=== PATIENT | male | born 1955 | race African-American/Black ===

== ENCOUNTER 2021-04-08 10:17 | Inpatient (IN) | payer MEDICARE ==
[~2021-04-08] VITALS: Ht 170.2 cm; Wt 75.7 kg
[2021-04-08] MEDS ORDERED: IBUPROFEN 600 MG TAB PO STA (10:26)
[2021-04-08 10:44] LABS: EOSINOPHILS % 1.3 % (0.0-6.0); HEMATOCRIT 22.6 % (38.2-49.6); HEMOGLOBIN 7.2 g/dL (14.0-18.0); LYMPHOCYTES # (AUTO) 0.8 (1.0-3.2); LYMPHOCYTES % 35.2 % (18.0-39.1); MEAN CORPUSCULAR HEMOGLOBIN 28.7 pg (28-32); MEAN CORPUSCULAR HGB CONC 31.9 g/dL (31-35); MONOCYTES # (AUTO) 0.2 (0.2-0.8); MONOCYTES % 7.2 % (4.4-11.3); NEUTROPHILS # (AUTO) 1.3 (2.1-6.9); NEUTROPHILS % 53.8 % (38.7-80.0); RED BLOOD COUNT 2.51 x10e6/uL (4.3-5.7); RED CELL DISTRIBUTION WIDTH 19.8 % (11.7-14.4)
[2021-04-08 10:54] LABS: INR 0.95; PLATELET COUNT 46 x10e3/uL (140-360); PROTHROMBIN TIME 12.9 seconds (11.9-14.5)
[2021-04-08 10:59] LABS: ALBUMIN 2.4 g/dL (3.5-5.0); ALBUMIN/GLOBULIN RATIO 0.5 (0.8-2.0); CALCIUM 8.5 mg/dL (8.4-10.2); CREATININE, SERUM 1.75 mg/dL (0.72-1.25)
[2021-04-08 11:40] LABS: LYMPHOCYTES % (MANUAL) 27 % (19-48); MONOCYTES % (MANUAL) 4 % (3.4-9.0); NEUTROPHILS % (MANUAL) 64 % (40-74)
[2021-04-08 11:41] LABS: ANISOCYTOSIS MODERATE; HYPOCHROMASIA SLIGHT; PLATELET ESTIMATE MARKEDLY DECREASED; PLATELET MORPHOLOGY COMMENT NORMAL; POLYCHROMASIA FEW; RBC MORPHOLOGY COMMENT ABNORMAL
[2021-04-08] MEDS: CEFEPIME 1 GM in SODIUM CHLORIDE 0.9% 50ML 50 ML IV SCH ×2 (12:30→13:00)
[2021-04-08] MEDS ORDERED: POTASSIUM CHLORIDE 20 MEQ TAB CR PO ONE (12:30)
[2021-04-08] MEDS ORDERED: ACETAMINOPHEN 325 MG TAB PO PRN (13:00)
[2021-04-08] MEDS ORDERED: ONDANSETRON HCL INJ 2MG/ML 2ML 2 MG/ML VIAL IV PRN (13:00)
[2021-04-08] MEDS ORDERED: DEXAMETHASONE SOD PHOS 10 MG/1 ML VIAL IV ONE (13:30)
[2021-04-08] MEDS ORDERED: DEXAMETHASONE SOD PHOS 10 MG/1 ML VIAL ONE (13:32)
[2021-04-08 14:21] LABS: THYROID STIMULATING HORMONE 0.204 uIU/mL (0.350-4.940)
[2021-04-08] MEDS ORDERED: FLOMAX0.4 MG PO (17:31)
[2021-04-08] MEDS ORDERED: VALACYCLOVIR500 MG PO (17:36)
[2021-04-08] MEDS ORDERED: CARVEDILOL12.5 MG PO (17:36)
[2021-04-08] MEDS ORDERED: ASPIRIN81 MG PO (17:36)
[2021-04-08] MEDS ORDERED: LEVOTHYROXINE75 MCG PO (17:36)
[2021-04-08] MEDS ORDERED: OS-CAL 500+D T1 EACH PO (17:36)
[2021-04-08] MEDS ORDERED: MICARDIS80 MG PO (17:36)
[2021-04-08] MEDS ORDERED: OMEPRAZOLE40 MG PO (17:36)
[2021-04-08] MEDS ORDERED: AMLODIPINE BESY10 MG PO (17:37)
[2021-04-08] MEDS ORDERED: CRESTOR10 MG PO (17:38)
[2021-04-08 19:30] VITALS: BP 118/87
[2021-04-08] MEDS: TAMSULOSIN HCL 0.4 MG CAP PO SCH (21:02)
[2021-04-08 21:17] VITALS: BP 118/87
[2021-04-08 21:21] VITALS: BP 118/87
[2021-04-08 23:00] VITALS: BP 118/87
[2021-04-08 23:50] VITALS: BP 148/73
[2021-04-09] VITALS (7 sets, daily range): BP systolic 127–151; BP diastolic 64–84
[2021-04-09] MEDS: CEFEPIME 1 GM in SODIUM CHLORIDE 0.9% 50ML 50 ML IV SCH ×3 (05:27→21:00)
[2021-04-09 07:30] LABS: BASOPHILS % 0.4 % (0.0-1.0); HEMATOCRIT 38.2 % (38.2-49.6); HEMOGLOBIN 12.4 g/dL (14.0-18.0); LYMPHOCYTES # (AUTO) 0.8 (1.0-3.2); LYMPHOCYTES % 28.6 % (18.0-39.1); MEAN CORPUSCULAR HGB CONC 32.5 g/dL (31-35); MEAN CORPUSCULAR VOLUME 89.3 fL (81-99); MONOCYTES # (AUTO) 0.2 (0.2-0.8); NEUTROPHILS # (AUTO) 1.7 (2.1-6.9); NEUTROPHILS % 63.3 % (38.7-80.0); PLATELET COUNT 72 x10e3/uL (140-360); RED BLOOD COUNT 4.28 x10e6/uL (4.3-5.7); RED CELL DISTRIBUTION WIDTH 19.9 % (11.7-14.4)
[2021-04-09 08:01] LABS: ALBUMIN 2.4 g/dL (3.5-5.0); ALBUMIN/GLOBULIN RATIO 0.4 (0.8-2.0); ANION GAP 13.8 mmol/L (8-16); CALCIUM 8.7 mg/dL (8.4-10.2); CREATININE, SERUM 1.12 mg/dL (0.72-1.25); POTASSIUM 3.8 mmol/L (3.5-5.1)
[2021-04-09] MEDS: CALCITRIOL 0.25 MCG CAP PO SCH (09:37)
[2021-04-09] MEDS: ASCORBIC ACID 500 MG TAB PO SCH (09:37)
[2021-04-09] MEDS: DEXAMETHASONE SOD PHOS INJ 4 MG/ML VIAL IV SCH (09:37)
[2021-04-09] MEDS: AMLODIPINE BESYLATE 5 MG TAB PO SCH (09:38)
[2021-04-09 10:36] LABS: LYMPHOCYTES % (MANUAL) 32 % (19-48); MONOCYTES % (MANUAL) 7 % (3.4-9.0); NEUTROPHILS % (MANUAL) 54 % (40-74)
[2021-04-09 10:38] LABS: ANISOCYTOSIS MODERATE; PLATELET ESTIMATE MODERATELY DECREASED; PLATELET MORPHOLOGY COMMENT NORMAL; RBC MORPHOLOGY COMMENT ABNORMAL
[2021-04-09 14:25] LABS: FERRITIN 2575.83 ng/mL (21.81-274.66)
[2021-04-09] MEDS: VALACYCLOVIR HCL 500 MG TAB PO SCH (16:23)
[2021-04-09] MEDS ORDERED: REMDESIVIR 200MG 200 MG in SODIUM CHLORIDE 0.9% 100 ML IV ONE (17:00)
[2021-04-09] MEDS: TAMSULOSIN HCL 0.4 MG CAP PO SCH (20:59)
[2021-04-10] VITALS (9 sets, daily range): BP systolic 149–168; BP diastolic 69–81
[2021-04-10 05:32] LABS: HEMATOCRIT 39.1 % (38.2-49.6); HEMOGLOBIN 12.8 g/dL (14.0-18.0); MEAN CORPUSCULAR HEMOGLOBIN 28.9 pg (28-32); MEAN CORPUSCULAR HGB CONC 32.7 g/dL (31-35); MEAN CORPUSCULAR VOLUME 88.3 fL (81-99); PLATELET COUNT 85 x10e3/uL (140-360); RED BLOOD COUNT 4.43 x10e6/uL (4.3-5.7); RED CELL DISTRIBUTION WIDTH 19.6 % (11.7-14.4)
[2021-04-10] MEDS: LEVOTHYROXINE SODIUM 125 MCG TAB PO SCH (05:34)
[2021-04-10] MEDS: CEFEPIME 1 GM in SODIUM CHLORIDE 0.9% 50ML 50 ML IV SCH ×3 (05:34→22:47)
[2021-04-10 05:56] LABS: ALBUMIN 2.5 g/dL (3.5-5.0); ALBUMIN/GLOBULIN RATIO 0.4 (0.8-2.0); ANION GAP 17.6 mmol/L (8-16); CALCIUM 8.7 mg/dL (8.4-10.2); CREATININE, SERUM 1.23 mg/dL (0.72-1.25); POTASSIUM 3.6 mmol/L (3.5-5.1)
[2021-04-10] MEDS: PANTOPRAZOLE SOD 40 MG TABEC PO SCH (06:33)
[2021-04-10] MEDS: DEXAMETHASONE SOD PHOS INJ 4 MG/ML VIAL IV SCH (08:53)
[2021-04-10] MEDS: TELMISARTAN 40 MG TAB PO SCH (08:54)
[2021-04-10] MEDS: VALACYCLOVIR HCL 500 MG TAB PO SCH (08:55)
[2021-04-10] MEDS: CALCITRIOL 0.25 MCG CAP PO SCH (08:55)
[2021-04-10] MEDS: ASCORBIC ACID 500 MG TAB PO SCH (08:55)
[2021-04-10] MEDS: AMLODIPINE BESYLATE 5 MG TAB PO SCH (08:56)
[2021-04-10] MEDS: REMDESIVIR 100MG 100 MG in SODIUM CHLORIDE 0.9% 100 ML IV SCH (14:52)
[2021-04-10] MEDS: CARVEDILOL 12.5 MG TAB PO SCH (16:06)
[2021-04-10] MEDS: ENOXAPARIN SOD INJ 40 MG/0.4 ML SYR SC SCH (16:06)
[2021-04-10] MEDS: TAMSULOSIN HCL 0.4 MG CAP PO SCH (21:24)
[2021-04-10] MEDS ORDERED: SODIUM CHLORIDE 0.9% 250ML 250 ML ONE (21:27)
[2021-04-11] VITALS (8 sets, daily range): BP systolic 140–169; BP diastolic 63–77
[2021-04-11 04:59] LABS: HEMATOCRIT 36.3 % (38.2-49.6); HEMOGLOBIN 12.4 g/dL (14.0-18.0); LYMPHOCYTES # (AUTO) 1.2 (1.0-3.2); MEAN CORPUSCULAR HEMOGLOBIN 29.5 pg (28-32); MEAN CORPUSCULAR HGB CONC 34.2 g/dL (31-35); MEAN CORPUSCULAR VOLUME 86.4 fL (81-99); MONOCYTES # (AUTO) 0.4 (0.2-0.8); MONOCYTES % 9.1 % (4.4-11.3); NEUTROPHILS # (AUTO) 2.6 (2.1-6.9); NEUTROPHILS % 61.4 % (38.7-80.0); PLATELET COUNT 68 x10e3/uL (140-360); RED CELL DISTRIBUTION WIDTH 19.8 % (11.7-14.4)
[2021-04-11] MEDS: CEFEPIME 1 GM in SODIUM CHLORIDE 0.9% 50ML 50 ML IV SCH ×4 (05:33→22:46)
[2021-04-11] MEDS: LEVOTHYROXINE SODIUM 125 MCG TAB PO SCH (05:33)
[2021-04-11 08:27] LABS: BAND NEUTROPHILS % (MANUAL) 1 %; LYMPHOCYTES % (MANUAL) 25 % (19-48); MONOCYTES % (MANUAL) 8 % (3.4-9.0); NEUTROPHILS % (MANUAL) 66 % (40-74)
[2021-04-11 08:28] LABS: PLATELET ESTIMATE SLIGHTLY DECREASED; PLATELET MORPHOLOGY COMMENT FEW LARGE; RBC MORPHOLOGY COMMENT NORMAL
[2021-04-11] MEDS: PANTOPRAZOLE SOD 40 MG TABEC PO SCH (08:56)
[2021-04-11] MEDS: DEXAMETHASONE SOD PHOS INJ 4 MG/ML VIAL IV SCH (08:56)
[2021-04-11] MEDS: CARVEDILOL 12.5 MG TAB PO SCH ×2 (08:57→16:23)
[2021-04-11] MEDS: AMLODIPINE BESYLATE 5 MG TAB PO SCH (08:57)
[2021-04-11] MEDS: TELMISARTAN 40 MG TAB PO SCH (08:58)
[2021-04-11] MEDS: CALCITRIOL 0.25 MCG CAP PO SCH (08:58)
[2021-04-11] MEDS: ASCORBIC ACID 500 MG TAB PO SCH (08:59)
[2021-04-11] MEDS: VALACYCLOVIR HCL 500 MG TAB PO SCH (08:59)
[2021-04-11] MEDS: REMDESIVIR 100MG 100 MG in SODIUM CHLORIDE 0.9% 100 ML IV SCH (14:00)
[2021-04-11] MEDS: ENOXAPARIN SOD INJ 40 MG/0.4 ML SYR SC SCH (16:23)
[2021-04-11] MEDS: TAMSULOSIN HCL 0.4 MG CAP PO SCH (22:46)
[2021-04-12] VITALS: BP 161/74
[2021-04-12 04:00] VITALS: BP_SYST 149; BP_SYST 152; BP_DIAS 80; BP_DIAS 96
[2021-04-12] MEDS: LEVOTHYROXINE SODIUM 125 MCG TAB PO SCH (05:42)
[2021-04-12] MEDS: CEFEPIME 1 GM in SODIUM CHLORIDE 0.9% 50ML 50 ML IV SCH ×3 (05:42→21:01)
[2021-04-12 06:25] LABS: BASOPHILS % 0.2 % (0.0-1.0); HEMATOCRIT 34.4 % (38.2-49.6); HEMOGLOBIN 11.9 g/dL (14.0-18.0); LYMPHOCYTES # (AUTO) 1.4 (1.0-3.2); LYMPHOCYTES % 25.6 % (18.0-39.1); MEAN CORPUSCULAR HEMOGLOBIN 30.3 pg (28-32); MEAN CORPUSCULAR HGB CONC 34.6 g/dL (31-35); MEAN CORPUSCULAR VOLUME 87.5 fL (81-99); MONOCYTES # (AUTO) 0.4 (0.2-0.8); MONOCYTES % 6.3 % (4.4-11.3); NEUTROPHILS # (AUTO) 3.7 (2.1-6.9); NEUTROPHILS % 67.4 % (38.7-80.0); PLATELET COUNT 64 x10e3/uL (140-360); RED BLOOD COUNT 3.93 x10e6/uL (4.3-5.7); RED CELL DISTRIBUTION WIDTH 19.6 % (11.7-14.4)
[2021-04-12 07:05] LABS: FERRITIN 1105.22 ng/mL (21.81-274.66)
[2021-04-12] MEDS: PANTOPRAZOLE SOD 40 MG TABEC PO SCH (07:30)
[2021-04-12] MEDS: CARVEDILOL 12.5 MG TAB PO SCH ×2 (09:00→17:00)
[2021-04-12] MEDS: TELMISARTAN 40 MG TAB PO SCH (09:00)
[2021-04-12] MEDS: AMLODIPINE BESYLATE 5 MG TAB PO SCH (09:00)
[2021-04-12] MEDS: VALACYCLOVIR HCL 500 MG TAB PO SCH (09:00)
[2021-04-12] MEDS: DEXAMETHASONE SOD PHOS INJ 4 MG/ML VIAL IV SCH (09:00)
[2021-04-12] MEDS: ASCORBIC ACID 500 MG TAB PO SCH (09:00)
[2021-04-12] MEDS: CALCITRIOL 0.25 MCG CAP PO SCH (09:00)
[2021-04-12 11:04] VITALS: BP 155/70
[2021-04-12 12:22] VITALS: BP 146/70
[2021-04-12] MEDS: REMDESIVIR 100MG 100 MG in SODIUM CHLORIDE 0.9% 100 ML IV SCH (14:00)
[2021-04-12] MEDS: ENOXAPARIN SOD INJ 40 MG/0.4 ML SYR SC SCH (18:21)
[2021-04-12 20:00] VITALS: BP 160/69
[2021-04-12 21:00] VITALS: BP 160/69
[2021-04-12] MEDS: TAMSULOSIN HCL 0.4 MG CAP PO SCH (21:01)
[2021-04-13] VITALS: BP 167/72
[2021-04-13 04:00] VITALS: BP 154/72
[2021-04-13] MEDS: CEFEPIME 1 GM in SODIUM CHLORIDE 0.9% 50ML 50 ML IV SCH (05:41)
[2021-04-13] MEDS: LEVOTHYROXINE SODIUM 125 MCG TAB PO SCH (05:41)
[2021-04-13 06:04] LABS: BASOPHILS % 0.2 % (0.0-1.0); HEMATOCRIT 34.2 % (38.2-49.6); HEMOGLOBIN 11.3 g/dL (14.0-18.0); LYMPHOCYTES # (AUTO) 1.4 (1.0-3.2); LYMPHOCYTES % 28.3 % (18.0-39.1); MEAN CORPUSCULAR HEMOGLOBIN 29.3 pg (28-32); MEAN CORPUSCULAR VOLUME 88.6 fL (81-99); MONOCYTES # (AUTO) 0.4 (0.2-0.8); MONOCYTES % 7.6 % (4.4-11.3); NEUTROPHILS # (AUTO) 3.1 (2.1-6.9); NEUTROPHILS % 63.3 % (38.7-80.0); PLATELET COUNT 73 x10e3/uL (140-360); RED BLOOD COUNT 3.86 x10e6/uL (4.3-5.7); RED CELL DISTRIBUTION WIDTH 19.3 % (11.7-14.4)
[2021-04-13 06:53] LABS: ANION GAP 13.6 mmol/L (8-16); CALCIUM 8.2 mg/dL (8.4-10.2); CREATININE, SERUM 0.81 mg/dL (0.72-1.25); POTASSIUM 3.6 mmol/L (3.5-5.1)
[2021-04-13] MEDS: PANTOPRAZOLE SOD 40 MG TABEC PO SCH (07:30)
[2021-04-13 08:13] VITALS: BP 156/67
[2021-04-13] MEDS: CARVEDILOL 12.5 MG TAB PO SCH (09:00)
[2021-04-13] MEDS: DEXAMETHASONE SOD PHOS INJ 4 MG/ML VIAL IV SCH (09:18)
[2021-04-13] MEDS: TELMISARTAN 40 MG TAB PO SCH (09:20)
[2021-04-13] MEDS: ASCORBIC ACID 500 MG TAB PO SCH (09:20)
[2021-04-13] MEDS: CALCITRIOL 0.25 MCG CAP PO SCH (09:20)
[2021-04-13] MEDS: VALACYCLOVIR HCL 500 MG TAB PO SCH (09:21)
[2021-04-13] MEDS: AMLODIPINE BESYLATE 5 MG TAB PO SCH (09:21)
[2021-04-13 11:47] VITALS: BP 156/67
[2021-04-13 12:37] VITALS: BP 146/70
[2021-04-13] MEDS: REMDESIVIR 100MG 100 MG in SODIUM CHLORIDE 0.9% 100 ML IV SCH (14:00)
[2021-04-13] MEDS ORDERED: DECADRON4 M1 PO (15:20)
== END 2021-04-13 17:12 | disposition home or self-care (01) | DRG 177 ==
LOC: ER 10:23 → ERHOLD 12:48 → MED/SURG2 19:48
PROVIDERS: ADMIT Internal Medicine; ATTEND Internal Medicine
PROC: 3E0333Z Introduction of Anti-inflammatory into Peripheral Vein, Percutaneous Approach (ICD-10-PCS; principal; 2021-04-08)
PROC: XW033E5 Introduction of Remdesivir Anti-infective into Peripheral Vein, Percutaneous Approach, New Technology Group 5 (ICD-10-PCS; 2021-04-09)
DX: U07.1 COVID-19 (principal); J96.01 Acute respiratory failure with hypoxia; J12.82 Pneumonia due to coronavirus disease 2019; D61.818 Other pancytopenia; N17.9 Acute kidney failure, unspecified; Z94.84 Stem cells transplant status; D84.81 Immunodeficiency due to conditions classified elsewhere; C90.00 Multiple myeloma not having achieved remission; I10 Essential (primary) hypertension; E87.6 Hypokalemia; E78.00 Pure hypercholesterolemia, unspecified; E03.9 Hypothyroidism, unspecified; N40.0 Benign prostatic hyperplasia without lower urinary tract symptoms; I12.9 Hypertensive chronic kidney disease with stage 1 through stage 4 chronic kidney disease, or unspecified chronic kidney disease; N18.30 Chronic kidney disease, stage 3 unspecified; D64.9 Anemia, unspecified
CPT/HCPCS: 36415; 71045; 76700; 80048; 80053; 82232; 82270; 82607; 82728; 82746; 82784; 83036; 83540; 83605; 83615; 84165; 84443; 84466; 85007; 85025; 85027; 85045; 85379; 85610; 86140; 87040; 93005; 99284; J0692; J1100; J1650; J7050; U0002

== ENCOUNTER 2024-12-31 14:01 | Inpatient (IN) | payer MEDICARE ==
[~2024-12-31] VITALS: Ht 170.2 cm; Wt 75.7 kg
[~2024-12-31 14:01] MED LIST: AMLODIPINE BESY10 MG PO; ASPIRIN81 MG PO; CARVEDILOL12.5 MG PO; CRESTOR10 MG PO; DECADRON4 M1 PO; FLOMAX0.4 MG PO; LEVOTHYROXINE75 MCG PO; MICARDIS80 MG PO; OMEPRAZOLE40 MG PO; OS-CAL 500+D T1 EACH PO; VALACYCLOVIR500 MG PO
[2024-12-31 14:25] VITALS: TEMP 98.6
[2024-12-31] MEDS: SODIUM CHLORIDE 0.9% 1000ML 1,000 ML IV STA (15:39)
[2024-12-31 15:43] LABS: BASOPHILS % 0.2 % (0.0-1.0); EOSINOPHILS # (AUTO) 0.1 (0.0-0.4); HEMOGLOBIN 10.1 g/dL (14.0-18.0); LYMPHOCYTES # (AUTO) 0.4 (1.0-3.2); LYMPHOCYTES % 8.5 % (18.0-39.1); MEAN CORPUSCULAR HEMOGLOBIN 30.2 pg (28-32); MEAN CORPUSCULAR HGB CONC 31.6 g/dL (31-35); MEAN CORPUSCULAR VOLUME 95.8 fL (81-99); MONOCYTES # (AUTO) 1.1 (0.2-0.8); MONOCYTES % 20.8 % (4.4-11.3); NEUTROPHILS # (AUTO) 3.4 (2.1-6.9); NEUTROPHILS % 66.9 % (38.7-80.0); PLATELET COUNT 196 x10e3/uL (140-360); RED BLOOD COUNT 3.34 x10e6/uL (4.3-5.7); RED CELL DISTRIBUTION WIDTH 18.9 % (11.7-14.4); WHITE BLOOD COUNT 5.05 x10e3/uL (4.8-10.8)
[2024-12-31 15:59] LABS: INR 1.09; PROTHROMBIN TIME 15.1 seconds (11.9-14.5)
[2024-12-31 16:00] LABS: PARTIAL THROMBOPLASTIN TIME 29.4 seconds (23.8-35.5)
[2024-12-31 16:08] LABS: ALBUMIN 2.8 g/dL (3.5-5.0); ALBUMIN/GLOBULIN RATIO 0.7 (0.8-2.0); ANION GAP 19.1 mmol/L (8-16); BILIRUBIN,TOTAL 0.3 mg/dL (0.2-1.2); CALCIUM 9.3 mg/dL (8.4-10.2); CREATININE, SERUM 0.94 mg/dL (0.72-1.25); MAGNESIUM 1.7 MG/DL (1.3-2.1); POTASSIUM 3.1 mmol/L (3.5-5.1); TOTAL PROTEIN 6.6 g/dL (6.5-8.1)
[2024-12-31 16:26] LABS: TROPONIN I 0.006 ng/mL (0-0.300)
[2024-12-31 16:30] LABS: LYMPHOCYTES % (MANUAL) 13 % (19-48); MONOCYTES % (MANUAL) 10 % (3.4-9.0); NEUTROPHILS % (MANUAL) 77 % (40-74); PLATELET ESTIMATE ADEQUATE; PLATELET MORPHOLOGY COMMENT NORMAL
[2024-12-31] MEDS ORDERED: IOPAMIDOL 370 MG/ML 100 ML INFUS..BTL INJ ONE (16:39)
[2024-12-31 16:43] VITALS: PULSE 79; RESP 16
[2024-12-31] MEDS ORDERED: DEXTROSE 50% SYRINGE 50 ML IV PRN (16:45)
[2024-12-31] MEDS ORDERED: ACETAMINOPHEN 325 MG TAB PO PRN (16:45)
[2024-12-31] MEDS ORDERED: HYDRALAZINE HCL 20 MG/ML VIAL IV PRN (16:45)
[2024-12-31] MEDS ORDERED: GUAIFENESIN/CODEINE 5 ML LIQD PO PRN (16:45)
[2024-12-31] MEDS ORDERED: MELATONIN 5 MG TABLET PO PRN (16:45)
[2024-12-31] MEDS ORDERED: DIPHENHYDRAMINE HCL 25 MG CAP PO PRN (16:45)
[2024-12-31] MEDS ORDERED: LIDOCAINE 4% PATCH TP PRN (16:45)
[2024-12-31] MEDS ORDERED: ONDANSETRON HCL INJ 2MG/ML 2ML 2 MG/ML VIAL IV PRN (16:45)
[2024-12-31] MEDS ORDERED: DOCUSATE SODIUM 100 MG CAP PO PRN (16:45)
[2024-12-31] MEDS ORDERED: SIMETHICONE 80 MG CHEW PO PRN (16:45)
[2024-12-31] MEDS ORDERED: BENZONATATE 100 MG CAP PO PRN (16:45)
[2024-12-31] MEDS: ENOXAPARIN SOD INJ 40 MG/0.4 ML SYR SC SCH (17:00)
[2024-12-31 17:30] LABS: CORONAVIRUS COVID-19 AG NEGATIVE (NEGATIVE); INFLUENZA A AG NEGATIVE (NEGATIVE); INFLUENZA B AG NEGATIVE (NEGATIVE)
[2024-12-31 20:00] VITALS: BP 141/65; PULSE 86; RESP 19; TEMP 98; O2SAT 94
[2024-12-31 20:26] VITALS: BP 144/65; PULSE 86; RESP 19; TEMP 98; O2SAT 89
[2024-12-31 22:37] VITALS: PULSE 88; RESP 18; O2SAT 94
[2024-12-31] MEDS: ALBUTEROL/IPRATROPIUM 3 ML NEB NEB PRN (22:40)
[2025-01-01] VITALS (9 sets, daily range): BP systolic 129–172; BP diastolic 54–65; PULSE 84–102; RESP 18–20; TEMP 97.5–98.7; O2SAT 90–95
[2025-01-01 05:38] LABS: BASOPHILS % 0.6 % (0.0-1.0); EOSINOPHILS # (AUTO) 0.1 (0.0-0.4); EOSINOPHILS % 0.9 % (0.0-6.0); HEMATOCRIT 29.7 % (38.2-49.6); HEMOGLOBIN 9.3 g/dL (14.0-18.0); LYMPHOCYTES # (AUTO) 0.5 (1.0-3.2); LYMPHOCYTES % 9.6 % (18.0-39.1); MEAN CORPUSCULAR HGB CONC 31.3 g/dL (31-35); MEAN CORPUSCULAR VOLUME 95.8 fL (81-99); MONOCYTES % 18.1 % (4.4-11.3); NEUTROPHILS # (AUTO) 3.6 (2.1-6.9); NEUTROPHILS % 68.2 % (38.7-80.0); PLATELET COUNT 194 x10e3/uL (140-360); RED CELL DISTRIBUTION WIDTH 18.6 % (11.7-14.4)
[2025-01-01 06:02] LABS: ALBUMIN 2.5 g/dL (3.5-5.0); ALBUMIN/GLOBULIN RATIO 0.7 (0.8-2.0); ANION GAP 17.9 mmol/L (8-16); BILIRUBIN,TOTAL 0.3 mg/dL (0.2-1.2); CALCIUM 8.9 mg/dL (8.4-10.2); CREATININE, SERUM 0.72 mg/dL (0.72-1.25); TOTAL PROTEIN 5.9 g/dL (6.5-8.1)
[2025-01-01 06:06] LABS: POTASSIUM 2.9 mmol/L (3.5-5.1)
[2025-01-01 06:20] LABS: MAGNESIUM 1.7 MG/DL (1.3-2.1)
[2025-01-01] MEDS: POTASSIUM CHLORIDE 20 MEQ TAB CR PO PRN (06:23)
[2025-01-01] MEDS: POTASSIUM CHLORIDE 20 MEQ TAB CR PO STA ×2 (08:39→16:27)
[2025-01-01] MEDS: PANTOPRAZOLE SOD 40 MG TABEC PO SCH (08:40)
[2025-01-01 08:45] LABS: THYROID STIMULATING HORMONE 0.573 uIU/mL (0.350-4.940)
[2025-01-01 09:20] LABS: LYMPHOCYTES % (MANUAL) 11 % (19-48); MONOCYTES % (MANUAL) 19 % (3.4-9.0); NEUTROPHILS % (MANUAL) 68 % (40-74); REACTIVE LYMPHOCYTES 2
[2025-01-01 09:21] LABS: ANISOCYTOSIS SLIGHT; PLATELET ESTIMATE ADEQUATE; PLATELET MORPHOLOGY COMMENT FEW LARGE; POLYCHROMASIA FEW
[2025-01-01] MEDS: ASPIRIN 81 MG ENTERIC COATED PO SCH (10:00)
[2025-01-01] MEDS: TELMISARTAN 40 MG TAB PO SCH (10:00)
[2025-01-01] MEDS: CARVEDILOL 12.5 MG TAB PO SCH (10:00)
[2025-01-01] MEDS: CRESTOR 10MG PO SCH (21:44)
[2025-01-01] MEDS ORDERED: METFORMIN HCL500 MG PO (22:15)
[2025-01-01] MEDS ORDERED: GLIMEPIRIDE2 MG PO (22:15)
[2025-01-01] MEDS ORDERED: LEVOTHYROXINE88 MCG PO (22:15)
[2025-01-01] MEDS ORDERED: VALCYTE450 MG PO (22:15)
[2025-01-01] MEDS ORDERED: OMEPRAZOLE40 MG PO (22:15)
[2025-01-01] MEDS ORDERED: ATORVASTATIN CA10 MG PO (23:32)
[2025-01-02] VITALS (13 sets, daily range): BP systolic 95–170; BP diastolic 62–83; PULSE 67–98; RESP 16–20; TEMP 97.5–99.2; O2SAT 87–100
[2025-01-02] MEDS: ALBUTEROL/IPRATROPIUM 3 ML NEB NEB SCH (01:00)
[2025-01-02] MEDS: AMLODIPINE BESYLATE 10 MG TAB PO SCH (07:56)
[2025-01-02] MEDS: ASPIRIN 81 MG CHEW TAB PO SCH (07:57)
[2025-01-02] MEDS: TAMSULOSIN HCL 0.4 MG CAP PO SCH (07:58)
[2025-01-02] MEDS: LEVOTHYROXINE SODIUM 88 MCG TAB PO SCH (07:58)
[2025-01-02] MEDS ORDERED: SIMVASTATIN 40 MG TAB PO SCH (09:00)
[2025-01-02] MEDS: BUDESONIDE 0.5MG/2 ML NEB INH SCH (09:26)
[2025-01-02] MEDS: BUDESONIDE 0.25 MG/2 ML NEB ONE (10:07)
[2025-01-02 16:20] LABS: ANION GAP 18.4 mmol/L (8-16); CALCIUM 9.4 mg/dL (8.4-10.2); CREATININE, SERUM 0.76 mg/dL (0.72-1.25)
[2025-01-02 16:22] LABS: POTASSIUM 3.4 mmol/L (3.5-5.1)
[2025-01-02] MEDS: METHYLPREDNISOLONE SOD SUCC 40 MG/ML VIAL 1ML IV SCH (20:47)
[2025-01-02] MEDS: ATORVASTATIN 10 MG TAB PO SCH (20:47)
[2025-01-03] VITALS (9 sets, daily range): BP systolic 117–122; BP diastolic 52–63; PULSE 76–102; RESP 16–22; TEMP 97.8–98.4; O2SAT 90–100
[2025-01-03 06:04] LABS: HEMATOCRIT 28.3 % (38.2-49.6); HEMOGLOBIN 8.9 g/dL (14.0-18.0)
[2025-01-03 06:42] LABS: ANION GAP 17.9 mmol/L (8-16); CREATININE, SERUM 0.77 mg/dL (0.72-1.25); POTASSIUM 3.9 mmol/L (3.5-5.1)
== END 2025-01-03 17:01 | disposition home or self-care (01) | DRG 193 ==
LOC: ER 14:43 → ERHOLD 16:56 → MED/SURG2 18:16
PROVIDERS: ADMIT Internal Medicine; ATTEND Internal Medicine
DX: J18.9 Pneumonia, unspecified organism (principal); J96.01 Acute respiratory failure with hypoxia; J44.0 Chronic obstructive pulmonary disease with (acute) lower respiratory infection; Q25.1 Coarctation of aorta; Z94.84 Stem cells transplant status; C90.01 Multiple myeloma in remission; J84.10 Pulmonary fibrosis, unspecified; Z87.891 Personal history of nicotine dependence; Z99.81 Dependence on supplemental oxygen; I10 Essential (primary) hypertension; E78.5 Hyperlipidemia, unspecified; K21.9 Gastro-esophageal reflux disease without esophagitis; E03.9 Hypothyroidism, unspecified; I07.1 Rheumatic tricuspid insufficiency; I49.3 Ventricular premature depolarization; Z11.52 Encounter for screening for COVID-19; Z79.82 Long term (current) use of aspirin; Z79.899 Other long term (current) drug therapy
CPT/HCPCS: 36415; 71046; 71260; 80048; 80053; 82550; 82948; 83036; 83735; 83880; 84443; 84484; 85014; 85018; 85025; 85379; 85610; 85730; 87040; 93005; 93306; 94799; 99285; J0696; J1650; J2470; J2919; J7030; J7050; Q9967